=== PATIENT | female | born 1995 | race Caucasian/White ===

== ENCOUNTER 2017-10-21 17:26 | Emergency (ER) | payer MEDICARE, MEDICAID ==
[~2017-10-21] VITALS: Ht 172.7 cm; Wt 71.3 kg
[~2017-10-21 17:26] MED LIST: ADHD MED
[2017-10-21 17:33] VITALS: BP 104/71
[2017-10-21] MEDS ORDERED: IBUPROFEN 200 MG TABLET PO ONE (18:00)
== END 2017-10-21 19:00 | disposition home or self-care (01) ==
LOC: ED 18:54
DX: S93.402A Sprain of unspecified ligament of left ankle, initial encounter (principal); F90.9 Attention-deficit hyperactivity disorder, unspecified type; F31.9 Bipolar disorder, unspecified; X50.1XXA Overexertion from prolonged static or awkward postures, initial encounter; Y93.89 Activity, other specified; Y92.488 Other paved roadways as the place of occurrence of the external cause; Y99.8 Other external cause status
CPT/HCPCS: 29515

== ENCOUNTER 2017-12-20 13:31 | Emergency (ER) | payer MEDICARE, MEDICAID ==
[~2017-12-20] VITALS: Ht 160 cm; Wt 71.8 kg
[2017-12-20 13:33] VITALS: BP 115/76
== END 2017-12-20 14:18 | disposition home or self-care (01) ==
LOC: ED 14:04
DX: O26.891 Other specified pregnancy related conditions, first trimester (principal); O21.9 Vomiting of pregnancy, unspecified; R11.0 Nausea; O99.331 Smoking (tobacco) complicating pregnancy, first trimester; Z3A.01 Less than 8 weeks gestation of pregnancy
CPT/HCPCS: 99283

== ENCOUNTER 2021-07-29 23:47 | Emergency (ER) | payer MEDICARE, MEDICAID ==
[~2021-07-29] VITALS: Ht 160 cm; Wt 91.0 kg
--- NOTE | 2021-07-29 23:53 | NUR ---
ASSUMED CARE OF PATIENT. PATIENT BIB [facility] FOR RIGHT ANKLE PAIN AFTER ROLLING IT TODAY. VS STABLE. CALL LIGHT IN PLACE. WILL CONTINUE TO MONITOR.
[2021-07-30] MEDS ORDERED: HYDROcodone/APAP 5/325 TABLET PO ONE
[2021-07-30] MEDS ORDERED: HYDROcodone/APAP 5/325 TABLET ONE (00:14)
[2021-07-30 01:59] VITALS: BP 134/86
== END 2021-07-30 02:01 | disposition home or self-care (01) ==
LOC: ED 07-30 02:00
DX: S83.91XA Sprain of unspecified site of right knee, initial encounter (principal); S93.401A Sprain of unspecified ligament of right ankle, initial encounter; E11.9 Type 2 diabetes mellitus without complications; X50.0XXA Overexertion from strenuous movement or load, initial encounter; Y93.89 Activity, other specified; Y92.009 Unspecified place in unspecified non-institutional (private) residence as the place of occurrence of the external cause; Y99.8 Other external cause status
CPT/HCPCS: 99284

== ENCOUNTER 2021-08-08 22:53 | Emergency (ER) | payer MEDICARE, MEDICAID ==
[~2021-08-08] VITALS: Ht 160 cm; Wt 97.9 kg
[2021-08-08 22:57] VITALS: BP 133/80
[2021-08-09] MEDS ORDERED: KETOROLAC 30 MG/1 ML IM ONE
[2021-08-09] MEDS ORDERED: KETOROLAC 30 MG/1 ML ONE (00:50)
== END 2021-08-09 01:06 | disposition home or self-care (01) ==
LOC: ED 23:46
DX: S93.401A Sprain of unspecified ligament of right ankle, initial encounter (principal); Z72.9 Problem related to lifestyle, unspecified; W18.30XA Fall on same level, unspecified, initial encounter; Y93.89 Activity, other specified; Y92.89 Other specified places as the place of occurrence of the external cause; Y99.8 Other external cause status
CPT/HCPCS: 96372; 99283; J1885